=== PATIENT | female | born 1980 | race Caucasian/White ===

== ENCOUNTER 2016-09-20 21:29 | Emergency (ER) | payer OTHER ==
--- NOTE | ~2016-09-20 | CR63 ---
[facility] A Service of [facility] RADIOLOGY TEXT RESULTS PATIENT: JESSICA RANDHAWA LOCATION: SED : 78 UNIT #: [id number] AGE: [address]: Messi Fritz MD SEX: F ORDER DR: [id number] [place] [id number] E MR#: [id number] Acc #: [id number] NAME: JESSICA RANDHAWA : 1980 SEX: F STUDY DATE/TIME: 09/20/2016 22:34 UNIT: SED ROOM: STUDY DESCRIPTION: CR Chest 2 View Attending Physician: Messi Fritz M.D. Ordering Physician: Messi Fritz M.D. Primary Care Physician: Carlos Spivey M.D. MEDICAL IMAGING REPORT This report is preliminary unless electronic signature is present. EXAM Chest 2 views 09/20/2016 INDICATION 35-year-old female with chest pain on the right side since Wednesday. TECHNIQUE 2 view chest. COMPARISON 07/26/2016. FINDINGS Postop changes median sternotomy present. Cardiac silhouette borderline in size and stable. The vascularity is unremarkable. There is some degree of peribronchial cuffing on the lateral projection suggestive of reactive airways disease or bronchiolitis. No dense consolidation or effusion however. No pneumothorax. IMPRESSION Findings suggestive of reactive airways disease or mild bronchiolitis on the lateral view; otherwise, negative 2 view chest. Dictated by... Deepak Menjivar M.D. THIS IS AN ELECTRONICALLY VERIFIED REPORT Deepak Menjivar M.D. at 09/21/2016 10:01 PM JANAE/shira TD: 09/21/2016 10:09 [facility] A Service [facility] RADIOLOGY TEXT RESULTS PATIENT: JESSICA RANDHAWA LOCATION: SED : 79 UNIT #: [id number] AGE: [address]: Messi Fritz MD SEX: F ORDER DR: IMANI #: [id number] MEDICAL IMAGING REPORT Page 1 of 1
--- NOTE | ~2016-09-20 | EKG ---
PATIENT: JESSICA RANDHAWA UNIT #: [id number] Ventricular Rate: 84 BPM Atrial Rate: 84 BPM P-R Interval: 182 ms QRS Duration: 102 ms Q-T Interval: 390 ms QTC Calculation(Bezet): 460 ms P [place]: 27 degrees Calculated R [place]: 25 degrees Calculated T [place]: 39 degrees Diagnosis Line: Normal sinus rhythm Diagnosis Line: Normal ECG Diagnosis Line: No previous ECGs available Diagnosis Line: Confirmed by NORM DACOSTA MD ([id number]) on Diagnosis Line: 10/15/2016 7:10:23 AM INTERPRETING MD: SHARI
[~2016-09-20 21:29] MED LIST: ASPIRIN PO; B COMPLEX1 CA1 PO; B-COMPLEX W/VIT1 TA1 PO; BRINTELLIX10 MG PO; DESYREL50 MG PO; DOXYCYCLINE HY100 M3 PO; FLEXERIL10 M1; FLONASE 0.05% N16 G1; HYDROCODON-ACE1 EAC7 PO; IBUPROFEN JR100 MG; IBUPROFEN800 MG PO; LEXAPRO20 MG PO; MEDROL PO; NAPROSYN500 MG PO; NO MEDICATIONS; PENICILLIN V P250 MG; PRAVACHOL; PRAVASTATIN SOD10 MG PO; PREDNISONE PO; PROTONIX PO; PROTONIX20 MG PO; PROVERA5 MG; REMERON PO; SINGULAIR PO; SPIRIVA RESPIMAT4 G1; SPIRIVA18 MCG INH; SYMBICORT 160/4.6 G1; SYMBICORT INH; SYNTHROID PO; SYNTHROID0.05 MG; SYNTHROID0.1 MG PO; SYNTHROID0.2 MG PO; VITAMIN D400 UNI2 PO; VOLTAREN75 MG; ZITHROMAX PO
[2016-09-20 21:58] LABS: BASOPHIL% 0.3 % (0-2.5); DIFF IND NO; EOSINOPHIL# 0.3 X10e3 (0-0.7); EOSINOPHIL% 2.2 % (0.0-7.0); HEMATOCRIT 42.2 % (35.0-45.0); HEMOGLOBIN 14.2 gm/dL (12.0-16.0); LYMPHOCYTE# 2.9 X10e3 (1.0-3.5); LYMPHOCYTE% 23.5 % (17.0-45.0); MEAN CELL VOLUME 93.4 FL (83-96); MEAN CORPUSCULAR HEMOGLOBIN 31.3 PG (28-34); MEAN CORPUSCULAR HGB CONC 33.5 g/dL (30-36); MEAN PLATELET VOLUME 8.7 FL (6.5-11.5); MONOCYTE# 0.8 X10e3 (0-1.0); MONOCYTE% 6.5 % (3.0-12.0); NEUTROPHIL# 8.4 X10e3 (1.5-7.1); NEUTROPHIL% 67.5 % (40-75); PLATELET COUNT 326 X10e3 (140-420); RED BLOOD COUNT 4.52 X10e (3.90-5.30); RED CELL DISTRIBUTION WIDTH 16.3 % (11.0-15.5); WHITE BLOOD COUNT 12.5 X10e3 (4.0-10.5)
[2016-09-20 22:05] LABS: INR 1.1; PROTHROMBIN TIME (PATIENT) 12.2 SECONDS (9.5-12.4)
[2016-09-20 22:12] LABS: PARTIAL THROMBOPLASTIN TIME 30.1 SECONDS (25.6-38.1)
[2016-09-20 22:12] LABS: POC - CKMB <1.0 ng/mL (0.0-7.9); POC - MYOGLOBIN 41.1 ng/mL (0.0-169.0)
[2016-09-20 22:13] LABS: CALCIUM SERUM 8.6 mg/dL (8.4-10.2); CREATININE SERUM 0.8 mg/dL (0.6-1.4); GLOM FILT RATE Estimated 94.9 mL/min (>60); POTASSIUM 3.5 mmol/L (3.5-5.1)
[2016-09-20 22:13] LABS: POC - TROPONIN <0.05 ng/mL (<=0.05)
[2016-09-20 22:19] LABS: DDIMER <200 NG/ML (0-200)
== END 2016-09-20 23:19 | disposition home or self-care (01) ==
LOC: SED 21:29
PROVIDERS: Emergency Medicine
DX: R07.9 Chest pain, unspecified (principal); R42 Dizziness and giddiness; K21.9 Gastro-esophageal reflux disease without esophagitis; E78.5 Hyperlipidemia, unspecified; J44.9 Chronic obstructive pulmonary disease, unspecified; E03.9 Hypothyroidism, unspecified; F17.200 Nicotine dependence, unspecified, uncomplicated
CPT/HCPCS: 36415; 71020; 80048; 82553; 83874; 84484; 84703; 85025; 85379; 85610; 85730; 93005; 99284

== ENCOUNTER 2017-03-10 13:24 | Emergency (ER) | payer OTHER ==
--- NOTE | ~2017-03-10 | EKG ---
PATIENT: JESSICA RANDHAWA UNIT #: [id number] Ventricular Rate: 80 BPM Atrial Rate: 80 BPM P-R Interval: 172 ms QRS Duration: 100 ms Q-T Interval: 394 ms QTC Calculation(Bezet): 454 ms P [place]: 17 degrees Calculated R [place]: 14 degrees Calculated T [place]: 36 degrees Diagnosis Line: Normal sinus rhythm Diagnosis Line: Incomplete right bundle branch block Diagnosis Line: Borderline ECG Diagnosis Line: When compared with ECG of 20-SEP-2016 21:10, Diagnosis Line: No significant change was found Diagnosis Line: Confirmed by ANUJ DEE MD ([id number]) on Diagnosis Line: 03/12/2017 11:30:07 AM INTERPRETING MD: LEILA ANGEL
--- NOTE | ~2017-03-10 | CR72 ---
[facility] A Service of [facility] RADIOLOGY TEXT RESULTS PATIENT: JESSICA RANDHAWA LOCATION: SED : 79 UNIT #: [id number] AGE: [address]: Maribel Henry SEX: F ORDER DR: [id number] [address] [address] [id number] E MR#: [id number] Acc #: [id number] NAME: JESSICA RANDHAWA : 1980 SEX: F STUDY DATE/TIME: 03/10/2017 15:44 UNIT: SED ROOM: STUDY DESCRIPTION: CR Chest Single View Portable Attending Physician: Maribel Henry Pa-C Ordering Physician: Ashvin Ortiz M.D. Primary Care Physician: Carlos Spivey M.D. MEDICAL IMAGING REPORT This report is preliminary unless electronic signature is present. EXAM Portable chest. HISTORY Chest pain and back pain today. FINDINGS The cardiac size and pulmonary vascularity are normal. No infiltrates or effusions. Sternotomy. IMPRESSION No acute findings. Sternotomy. Dictated by... Jose Francisco Castro M.D. THIS IS AN ELECTRONICALLY VERIFIED REPORT Jose Francisco Castro M.D. at 03/11/2017 11:34 PM DFL/dudley TD: 03/11/2017 08:21 JOB #: [id number] MEDICAL IMAGING REPORT Page 1 of 1
[2017-03-10 15:19] LABS: BASOPHIL# 0.1 X10e3 (0-0.3); BASOPHIL% 0.8 % (0-2.5); EOSINOPHIL# 0.2 X10e3 (0-0.7); EOSINOPHIL% 1.9 % (0.0-7.0); HEMATOCRIT 43.7 % (35.0-45.0); HEMOGLOBIN 14.7 gm/dL (12.0-16.0); LYMPHOCYTE# 2.7 X10e3 (1.0-3.5); LYMPHOCYTE% 22.6 % (17.0-45.0); MEAN CELL VOLUME 96.6 FL (83-96); MEAN CORPUSCULAR HEMOGLOBIN 32.4 PG (28-34); MEAN CORPUSCULAR HGB CONC 33.6 g/dL (30-36); MEAN PLATELET VOLUME 9.5 FL (6.5-11.5); MONOCYTE# 0.9 X10e3 (0-1.0); MONOCYTE% 7.5 % (3.0-12.0); NEUTROPHIL% 67.2 % (40-75); PLATELET COUNT 294 X10e3 (140-420); RED BLOOD COUNT 4.53 X10e (3.90-5.30)
[2017-03-10 15:20] LABS: DIFF IND NO
[2017-03-10 15:35] LABS: POC - CKMB <1.0 ng/mL (0.0-7.9); POC - MYOGLOBIN 45.5 ng/mL (0.0-169.0); POC - TROPONIN <0.05 ng/mL (<=0.05)
[2017-03-10 15:42] LABS: ALBUMIN SERUM 3.9 g/dL (3.5-5.0); BILIRUBIN, DIRECT 0.2 mg/dL (0.0-0.2); BILIRUBIN,INDIRECT 0.5 mg/dL (0.0-0.9); BILIRUBIN,TOTAL 0.7 mg/dL (0.2-2.0); BUN/CREATININE RATIO 8.88; CALCIUM SERUM 8.6 mg/dL (8.4-10.2); CREATININE SERUM 0.9 mg/dL (0.6-1.4); GLOM FILT RATE Estimated 81.7 mL/min (>60); POTASSIUM 3.8 mmol/L (3.5-5.1)
== END 2017-03-10 16:51 | disposition home or self-care (01) ==
LOC: SED 13:24
PROVIDERS: Physician Assistant
DX: J06.9 Acute upper respiratory infection, unspecified (principal); J44.9 Chronic obstructive pulmonary disease, unspecified; J45.909 Unspecified asthma, uncomplicated; F17.200 Nicotine dependence, unspecified, uncomplicated; Z88.8 Allergy status to other drugs, medicaments and biological substances; Z79.899 Other long term (current) drug therapy
CPT/HCPCS: 36415; 71010; 80048; 80076; 82553; 83874; 84484; 85025; 93005; 94640; 96374; 99284; J2930